=== PATIENT | male | born 1960 | race Caucasian/White ===

== ENCOUNTER 2017-05-26 13:37 | Inpatient (IN) | payer MEDICARE, MEDICAID ==
--- NOTE | 2017-05-26 14:10 | ED Physician Chart ---
ED Chief Complaint/HPI - Patient Information Date Seen:: 05/26/17 Time Seen:: 13:50 Chief Complaint:: swelling both legs History of Present Illness:: Patient's had swelling of both legs for 3 month. No chills, fever, chest pain or shortness of breath. Right lower leg is 5 on a scale of 1-10 painful. Vitals:: Vital Signs - 8 hr 05/26/17 13:53 Temp 98.0 F HR 79 RR 16 BP 133/73 O2 Sat % 98 Historian:: Patient Review:: Nurse's Note Reviewed ED Review of Systems - Review of Systems General/Constitutional: No fever, No chills Skin: Skin lesions Head: No headache Eyes: No loss of vision ENT: No earache, No nasal drainage, No sore throat Neck: No neck pain, No swelling Cardio Vascular: No chest pain, No palpitations Pulmonary: No SOB, No cough GI: No pain, No melena G/U: No dysuria, No frequency, No hematuria Musculoskeletal: No bone or joint pain, Muscle pain Psychiatric: No prior psych history, No depression Hematopoietic: No bruising Allergic/Immuno: No urticaria Neurological: No syncope, No focal symptoms ED Past Medical History - Past Medical History Past Medical History: DM Family History: Diabetes [place] Social History: Smoker, No Alcohol, Other (smokes 10 cigarettes a day) Surgical History: None Psychiatricy History: None Medication: Reviewed Family Medical History - Family Member Mother History Unknown: Yes Ethnicity: Non- Living Status: Still Living Hx Family Cancer: No Hx Family Coronary Artery Disease: Yes Hx Family Congestive Heart Failure: No Hx Family Hypertension: No Hx Family Stroke: No Hx Family Diabetes: Yes Hx Family Seizures: No Hx Family Dementia: No Hx Family AIDS: No Hx Family HIV: No Hx Family COPD: No Hx Family Hepatitis: No Hx Family Psychiatric Problems: Yes Hx Family Tuberculosis: No ED Physical Exam - Physical Examination General/Constitutional: Well-developed, well-nourished, Alert, No distress Head: Atraumatic Eyes: Lids, conjuctiva normal, PERRL Other Skin comments:: 4 out of 4 pitting edema both lower legs; multiple circular areas of slightly raised erythema up to about 1 cm in diameter anterior lower legs right more than left. ENMT: External ears, nose nl Neck: No nuchal rigidity Respiratory: Nl effort/Exclusion, Clear to Auscultation Cardio Vascular: RRR, No murmur, gallop, rubs GI: No tenderness/rebounding/guarding : No CVA tenderness Other Extremities comments:: See above under skin Neuro/Psych: No focal deficits Misc: Normal back ED Labs/Radiology/EKG Results - Lab Results Results: Laboratory Results - last 24 hr 05/26/17 05/26/17 14:12 14:12 WBC 7.6 RBC 4.36 Hgb 13.3 Hct 38.5 L D MCV 88.3 MCH 30.4 H MCHC Differential 34.4 RDW 13.6 Plt Count 187 MPV 7.4 Neutrophils % 60.1 Lymphocytes % 29.7 Monocytes % 8.2 Eosinophils % 1.6 Basophils % 0.4 Sodium 138 Potassium 3.8 Chloride 105 Carbon Dioxide 30.2 Anion Gap 6.6 L BUN 25 Creatinine 1.0 Est GFR ( Amer) > 60.0 Est GFR (Non-Af Amer) > 60.0 BUN/Creatinine Ratio 25.0 Glucose 185 H Calcium 8.9 Total Bilirubin 0.6 AST 14 ALT 25 Alkaline Phosphatase 59 Total Protein 6.1 Albumin 3.6 L Globulin 2.5 Albumin/Globulin Ratio 1.4 - Radiology Results Results: CXR: normal; venous Doppler negative for deep vein thrombosis - EKG Interpretations Rate & Rhythm: normal sinus rhythm with a rate 81 [place]: normal axis Comments:: Normal EKG ED Septic Shock - . Is Septic Shock (SBP<90, OR Lactate>4 mmol\L) present?: No - <6hrs of presentation: Vital Signs: Vital Signs - 8 hr 05/26/17 13:53 Temp 98.0 F HR 79 RR 16 BP 133/73 O2 Sat % 98 ED Reassessment (Disposition) - Reassessment Reassessment Condition:: Unchanged - Diagnosis Diagnosis:: Peripheral edema; folliculitis - Patient Disposition Admitted to:: Med/Surg Spoke to:: Severino Castro Admitting Medical Physician:: Severino Castro Condition at Disposition:: Stable, Unchanged
[2017-05-26 14:17] LABS: % BASOPHILS 0.4 % (0.0-2.0); % EOSINOPHILS 1.6 % (0.0-5.0); % LYMPHOCYTES 29.7 % (20.0-50.0); % MONOCYTES 8.2 % (2.0-10.0); % NEUTROPHILS 60.1 % (40.0-80.0); HEMOGLOBIN 13.3 gm/dL (12-16); MEAN CELL VOLUME 88.3 fl (80-99); MEAN CORPUSCULAR HEMOGLOBIN 30.4 pg (26.0-30.0); MEAN CORPUSCULAR HGB CONC 34.4 pg (28.0-36.0); MEAN PLATELET VOLUME 7.4 fl; NEUTROPHILE ABSOLUTE 4.6 Th/cmm (1.8-8.0); PLATELET COUNT 187 Th/cmm (150-400); RED BLOOD COUNT 4.36 Mil/cmm (4.30-5.70); RED CELL DISTRIBUTION WIDTH 13.6 % (11.5-20.0); WHITE BLOOD COUNT 7.6 Th/cmm (4.8-10.8)
[2017-05-26 14:19] LABS: HEMATOCRIT 38.5 % (41.0-60)
[2017-05-26 14:32] LABS: ALB/GLOB RATIO 1.4 (1.0-1.8); ALKALINE PHOSPHATASE 59 U/L (34-104); ANION GAP 6.6 (7.0-16.0); BILIRUBIN,TOTAL 0.6 mg/dL (0.3-1.0); BUN - UREA NITROGEN 25 mg/dL (7-25); CALCIUM SERUM 8.9 mg/dL (8.6-10.3); CARBON DIOXIDE 30.2 mEq/L (21.0-31.0); CHLORIDE 105 mEq/L (98-107); GLUCOSE 185 mg/dL (70-105); POTASSIUM SERUM 3.8 mEq/L (3.5-5.1); SGOT 14 U/L (13-39); SGPT/ALT 25 U/L (7-52); SODIUM SERUM 138 mEq/L (136-145)
[2017-05-26 19:36] VITALS: BP 144/62
[2017-05-26] MEDS: Albuterol Nebulizer 2.5mg/3mL HHN SCH (20:08)
[2017-05-26] MEDS: INSULIN ASPART, RECOMBINANT 100 UNITS/ML SUBQ SCH (20:42)
[2017-05-26] MEDS: Insulin Detemir 100 units/mL 10mL Vial SUBQ SCH (20:43)
[2017-05-26] MEDS: cefTRIAXone 1 GM in Sodium Chloride 0.9% 50 ML IV SCH (20:59)
[2017-05-26] MEDS ORDERED: Non-Formulary Item 1 EA (Atorvastatin Calcium [Lipitor] 20 MG) PO SCH (21:00)
[2017-05-26] MEDS ORDERED: INSULIN GLARGINE RECOMBINAN SUBQ SCH (21:00)
[2017-05-27] MEDS: INSULIN ASPART, RECOMBINANT 100 UNITS/ML SUBQ SCH ×4 (06:32→21:03)
[2017-05-27] MEDS: Levothyroxine 0.05 Mg Tab PO SCH (06:35)
[2017-05-27] MEDS: Albuterol Nebulizer 2.5mg/3mL HHN SCH ×4 (07:15→19:27)
--- NOTE | 2017-05-27 07:43 | Diagnostic Imaging Report ---
Bilateral lower extremity Doppler venous ultrasound exam HISTORY: Pain/swelling Sonographic sector images were obtained through the deep venous systems of both legs. Associated Doppler data was obtained. The exam demonstrates patency of the common femoral, superficial femoral, popliteal, and posterior tibial veins bilaterally. Specifically, no thrombus is seen. There are normal compressibility and augmentation responses. IMPRESSION: Negative exam for deep vein thrombophlebitis.
--- NOTE | 2017-05-27 07:45 | Diagnostic Imaging Report ---
Portable chest x-ray HISTORY: Shortness of breath Allowing for portable technique in a poor inspiration, the heart size is normal. No acute focal pulmonary processes. No hilar or mediastinal abnormalities. IMPRESSION: 1. Allowing for a poor inspiration, no acute abnormalities.
[2017-05-27] MEDS: Multivitamin w/ Minerals Tab PO SCH (09:06)
[2017-05-27] MEDS: Fish Oil 1,000 MG SGL PO SCH ×2 (09:06→17:29)
[2017-05-27] MEDS: cefTRIAXone 1 GM in Sodium Chloride 0.9% 50 ML IV SCH ×2 (09:06→20:35)
[2017-05-27] MEDS: Vitamin D3 2,000 IU SGL PO SCH ×2 (09:06→17:29)
[2017-05-27] MEDS ORDERED: Influenza Vaccine 0.5 mL Syr IM ONE (10:00)
[2017-05-27] MEDS ORDERED: VTE Chemical Prophylaxis Screen/Admission MC PRN (10:58)
--- NOTE | 2017-05-27 13:23 | Internal Medicine Prog Note ---
Internal Medicine Subjective - Subjective Service Date: 05/27/17 ([id number] HN ) Internal Medicine Objective - Results Result Diagrams: 05/26/17 14:12 05/26/17 14:12 Recent Labs: Laboratory Last Values WBC 7.6 Th/cmm (4.8-10.8) 05/26/17 14:12 RBC 4.36 Mil/cmm (4.30-5.70) 05/26/17 14:12 Hgb 13.3 gm/dL (12-16) 05/26/17 14:12 Hct 38.5 % (41.0-60) L D 05/26/17 14:12 MCV 88.3 fl (80-99) 05/26/17 14:12 MCH 30.4 pg (26.0-30.0) H 05/26/17 14:12 MCHC Differential 34.4 pg (28.0-36.0) 05/26/17 14:12 RDW 13.6 % (11.5-20.0) 05/26/17 14:12 Plt Count 187 Th/cmm (150-400) 05/26/17 14:12 MPV 7.4 fl 05/26/17 14:12 Neutrophils % 60.1 % (40.0-80.0) 05/26/17 14:12 Lymphocytes % 29.7 % (20.0-50.0) 05/26/17 14:12 Monocytes % 8.2 % (2.0-10.0) 05/26/17 14:12 Eosinophils % 1.6 % (0.0-5.0) 05/26/17 14: Basophils % 0.4 % (0.0-2.0) 05/26/17 14:12 Sodium 138 mEq/L (136-145) 05/26/17 14:12 Potassium 3.8 mEq/L (3.5-5.1) 05/26/17 14:12 Chloride 105 mEq/L (98-107) 05/26/17 14:12 Carbon Dioxide 30.2 mEq/L (21.0-31.0) 05/26/17 14:12 Anion Gap 6.6 (7.0-16.0) L 05/26/17 14:12 BUN 25 mg/dL (7-25) 05/26/17 14:12 Creatinine 1.0 mg/dL (0.7-1.3) 05/26/17 14:12 Est GFR ( Amer) > 60.0 ml/min (>90) 05/26/17 14:12 Est GFR (Non-Af Amer) > 60.0 ml/min 05/26/17 14:12 BUN/Creatinine Ratio 25.0 05/26/17 14:12 Glucose 185 mg/dL (70-105) H 05/26/17 14:12 POC Glucose 142 MG/DL (70 - 105) H 05/27/17 11:37 Hemoglobin A1c % 7.6 % (4.0-6.0) H 05/26/17 14:12 Calcium 8.9 mg/dL (8.6-10.3) 05/26/17 14:12 Total Bilirubin 0.6 mg/dL (0.3-1.0) 05/26/17 14:12 AST 14 U/L (13-39) 05/26/17 14:12 ALT 25 U/L (7-52) 05/26/17 14:12 Alkaline Phosphatase 59 U/L (34-104) 05/26/17 14:12 Troponin I < 0.01 ng/mL (0.01-0.05) L 05/26/17 14:12 B-Natriuretic Peptide 63.1 pg/mL (5.0-100.0) 05/26/17 14:12 Total Protein 6.1 gm/dL (6.0-8.3) 05/26/17 14:12 Albumin 3.6 gm/dL (4.2-5.5) L 05/26/17 14:12 Globulin 2.5 gm/dL 05/26/17 14:12 Albumin/Globulin Ratio 1.4 (1.0-1.8) 05/26/17 14:12 - Physical Exam Vitals and I&O: Vital Signs Temp 98.1 F 05/27/17 12:00 Pulse 65 05/27/17 12:00 Resp 18 05/27/17 12:00 BP 128/64 05/27/17 12:00 Pulse Ox 98 05/27/17 12:00 Intake & Output 05/26/17 05/27/17 05/27/17 18:59 06:59 18:59 Intake Total 410 Output Total 900 Balance -490 Weight (lbs) 190 lb Intake: Intake, IV Amount 50 cefTRIAXone 1 gm In 50 Sodium Chloride 0.9% 50 ml @ 100 mls/hr IV Q12HR [facility] Rx#:[id number] Oral 360 Output: Urine 900 Active Medications: Current Medications Acetaminophen (Tylenol) 650 mg PO Q4H PRN PRN Reason: Pain Or Fever above 101 Stop: 07/25/17 18:51 Albuterol Sulfate (Albuterol 2.5mg/3ml Neb Ud) 2.5 mg HHN QIDRT [facility] Stop: 07/25/17 18:59 Last Admin: 05/27/17 12:00 Dose: 2.5 mg Docusate Sodium (Colace) 100 mg PO DAILY [facility] Stop: 07/26/17 08:59 Last Admin: 05/27/17 09:06 Dose: 100 mg Fish Oil ([place] 3) 1,000 mg PO BID [facility] Stop: 07/26/17 08:59 Last Admin: 05/27/17 09:06 Dose: 1,000 mg Heparin Sodium (Porcine) (Heparin) 5,000 units SUBQ Q12HR [facility] Stop: 07/26/17 20:59 Ceftriaxone Sodium 1 gm/ (Sodium Chloride) 50 mls @ 100 mls/hr IV Q12HR [facility] Stop: 07/25/17 20:59 Last Admin: 05/27/17 09:06 Dose: 100 mls/hr Insulin Aspart (Novolog) 0 units SUBQ ACHS [facility] PRN Reason: Protocol Stop: 07/25/17 20:59 Last Admin: 05/27/17 12:19 Dose: Not Given Insulin Detemir (Levemir Insulin) 10 units SUBQ HS [facility] Stop: 07/25/17 20:59 Last Admin: 05/26/17 20:43 Dose: 10 units Levothyroxine Sodium (Synthroid) 0.05 mg PO QDAC [facility] Stop: 07/26/17 07:29 Last Admin: 05/27/17 06:35 Dose: 0.05 mg Miscellaneous (Vte Chemical Prophylaxis Screen/ Admission) 1 ea [facility] PRN PRN PRN Reason: PROTOCOL Stop: 07/26/17 10:57 Ondansetron HCl (Zofran) 4 mg IV Q8H PRN PRN Reason: Nausea / Vomiting Stop: 07/25/17 18:51 Simvastatin (Zocor) 20 mg PO HS [facility] Stop: 07/25/17 20:59 Last Admin: 05/26/17 20:44 Dose: 20 mg Vitamin D (Vitamin D3) 2,000 iu PO BID [facility] Stop: 07/26/17 08:59 Last Admin: 05/27/17 09:06 Dose: 2,000 iu Zolpidem Tartrate (Ambien) 10 mg PO HS PRN PRN Reason: Insomnia Stop: 07/25/17 18:51 - Procedures Procedures: Procedures Procedure Code Date GROUP PSYCHOTHERAPY 99793 07/02/15 GROUP PSYCHOTHERAPY [id number] 07/02/15 OTHER GROUP THERAPY 94.44 01/29/15 RECREATIONAL THERAPY 93.81 06/09/14 Internal Medicine Assmt/Plan - Assessment Assessment: acute cellulitis dm-2 CHF exacerbation Nutritional Asmnt/Malnutr-PDOC - Dietary Evaluation Malnutrition Findings (Please click <Entered> for more info): Nutritional Asmnt/Malnutrition Start: 05/27/17 12: 01 Text: Status: Complete Freq: Document 05/27/17 12:01 MADDIE (Rec: 05/27/17 12:05 MADDIE LOWERY -[id number]) Nutritional Asmnt/Malnutrition Patient General Information Nutritional Screening Consult Diagnosis Cellulits, CHF Pertinent Medical Hx/Surgical Hx DM, smoker per MD notes Subjective Information Pt seen for Nutrition Consult (elevated glucose level). Pt reported that he hasn't had much of an appetite as he doesn't care for hospital foods. RN confirmed that pt hasn't been eating much. Pt appeared over-nourished for ht , c/w anthropometrics and verified by pt. Pt has RLE and LLE 4+ pitting edema. Pt reported use of calcium and vitamins for immunity. Pt is millicent Current Diet Order/ Nutrition Support Cardiac Patient / S.O Can Pertinent Medications colace, omega 3, levemir, insulin, synthroid, zocor, VIT D3 Pertinent Labs 05/27/17: POC BG 110 H : BG 185 H, HgA1c 7.6 H , ALB 3.6 L Nutritional Hx/Data Height 5 ft 11 in Height (Calculated Centimeters) 180.3 Current Weight (lbs) 190 lb Weight (Calculated Kilograms) 86.2 Weight (Calculated Grams) 93420.6 Usual body Weight (lbs) 210 % Usual Body Weight 90 [place] Body Weight 172 lb, 78 kg % [place] Body Weight 110 Recent Weight Change Yes Weight Status Overweight GI Symptoms GI Symptoms None Food Allergies No Usual diet at home Avoids bread/prefers meats/ fish/chicken/beef Skin Integrity/Comment: Bilateral legs w/ rash/redness /cellulitis per RN report Current %PO Poor (25-49%) Estimated Nutritional Goals BEE in Kcals: Using Current wt Calories/Kcals/Kg 25-30 kcal/kg CBW (maintenance ) Kcals Calculated 3526-7788 kcal/day Protein: Using Current wt Protein g/k.8-1 gm/kg CBW (maintenance) Protein Calculated 69-86 gm/day Fluid: ml 2.2-2.6 L/day (1 ml/kcal/day for maintenance) Nutritional Problem 2. Problem Problem Altered nutriton-related labs Etiology related to endocrine dysfunction Signs/Symptoms: as evidenced by elevated BG and POC BG lab values. 1. Problem Problem Inadequate nutritional intakes Etiology related to lack of appetite Signs/Symptoms: as evidenced by pt and RN report. Malnutrition Alert Is there a minimum of two criteria No selected? Query Text:Check all the applicable criteria. A minimum of two criteria are recommended for diagnosis of either severe or non-severe malnutrition. Intervention/Recommendation Recommendations by RD Dietary Education by RD1 Increase Calorie Intake Comments * Recommend CCHO high carb-75 gm diet * Recommend encourage increase PO intakes Expected Outcomes/Goals Expected Outcomes/Goals - Monitor appetite and PO intakes w/ gaol fo pt meeting at least 75% of estimated nutritional needs, labs trending WNL, normal GI function, and skin integrity/ wt maintenance within 3-5 days
[2017-05-27] MEDS ORDERED: Probiotic Screen MC PRN (16:46)
--- NOTE | 2017-05-27 18:21 | Cardiology ---
05/27/2017 PATIENT OF: Dr. Castro. M-MODE ECHOCARDIOGRAM: Mitral valve, anterior leaflet of the mitral valve shows normal excursion, EF velocity. Posterior leaflet of mitral valve shows normal excursion. Left ventricular posterior wall shows increased thickness, normal excursion. Interventricular septum shows increased thickness, normal excursion, hypertrophy of the left ventricle, ejection fraction 60%. Left atrium enlarged, 4.2 cm. Aortic root shows normal dimension, normal excursion of aortic leaflets. CONCLUSION: Hypertrophy of the left ventricle, left atrial enlargement, ejection fraction 60%. 2D ECHO: Long axis view showed normal sized left ventricle with hypertrophy of the left ventricle. Left atrium enlarged. Aortic root shows normal dimension, normal excursion of aortic leaflets. Short axis view of mitral valve normal. Short axis view of aortic valve normal. Apical four chamber view showed normal sized left ventricle, left atrium enlarged. Right ventricular cavity, right atrium normal, no pericardial effusion. CONCLUSION: Hypertrophy of the left ventricle. Left atrial enlargement, ejection fraction 60%. Doppler study shows prominent A wave consistent with poor compliance of left ventricle. Trace tricuspid regurgitation. JOB# [id number]
[2017-05-27] MEDS: Insulin Detemir 100 units/mL 10mL Vial SUBQ SCH (21:02)
--- NOTE | 2017-05-27 22:05 | History & Physical ---
ADMIT DATE: 05/27/2017 CHIEF COMPLAINT: Bilateral lower leg swelling. HISTORY OF PRESENT ILLNESS: This is a 56-year-old male, who is a resident of [facility], who is brought here to [facility] for a 3-month history of bilateral lower leg swelling. The patient denies any shortness of breath, however, the patient states that he has been having leg pain as well. PAST MEDICAL HISTORY: Type 2 diabetes and psychosis. SOCIAL HISTORY: The patient smokes half a pack per day, a senior care resident. MEDICATIONS: Please see medication reconciliation sheet. REVIEW OF SYSTEMS: GENERAL: Denies any fevers or chills. CARDIOVASCULAR: Denies chest pain. RESPIRATORY: Denies shortness of breath. GASTROINTESTINAL: Denies nausea, vomiting, abdominal pain. GENITOURINARY: Denies increased frequency or dysuria. NEUROLOGIC: No headache, seizures or syncope. All other systems are reviewed by me and are negative. PHYSICAL EXAMINATION: GENERAL: The patient is well developed, well nourished, no acute distress. VITAL SIGNS: Temperature 98.1, heart rate 65, blood pressure ____/64, respirations 18, O2 98%. HEENT: Head; normocephalic, atraumatic. NECK: Supple. No mass. LUNGS: Clear bilaterally. HEART: Regular rhythm. ABDOMEN: Soft, nontender. SKIN: As noted. EXTREMITIES: Bilateral lower extremities +3 edema. LABORATORY DATA: WBC 7.6, H and H 13.3 and 38.5, platelet of 187. Sodium 138, potassium 3.8, chloride 105, BUN 25, creatinine 1.0. Hemoglobin A1c of 7.0. Troponin of 0.01. DIAGNOSTICS: The patient had a lower extremity ultrasound done and the impression is negative for any DVT. The patient also had a chest x-ray done and the impression is ____ acute abnormalities. ASSESSMENT: 1. Cellulitis. 2. Congestive heart failure exacerbation. 3. Type 2 diabetes. PLAN: The patient to be admitted to the telemetry unit. We will have a cardiology on the case. The patient will be on a 75 g diet. We will monitor the patient's glucose level ____. We will do ____ a renal ultrasound. We will continue to follow this patient. JOB# [id number]
[2017-05-28 05:46] LABS: % BASOPHILS 0.4 % (0.0-2.0); % EOSINOPHILS 1.2 % (0.0-5.0); % LYMPHOCYTES 26.9 % (20.0-50.0); % MONOCYTES 9.8 % (2.0-10.0); % NEUTROPHILS 61.7 % (40.0-80.0); HEMOGLOBIN 12.1 gm/dL (12-16); MEAN CELL VOLUME 87.4 fl (80-99); MEAN CORPUSCULAR HEMOGLOBIN 30.6 pg (26.0-30.0); NEUTROPHILE ABSOLUTE 5.9 Th/cmm (1.8-8.0); PLATELET COUNT 165 Th/cmm (150-400); RED BLOOD COUNT 3.94 Mil/cmm (4.30-5.70); RED CELL DISTRIBUTION WIDTH 13.3 % (11.5-20.0)
[2017-05-28 05:49] LABS: WHITE BLOOD COUNT 9.5 Th/cmm (4.8-10.8)
[2017-05-28 05:50] LABS: HEMATOCRIT 34.5 % (41.0-60)
[2017-05-28 06:11] LABS: ANION GAP 7.8 (7.0-16.0); BUN - UREA NITROGEN 15 mg/dL (7-25); BUN/CREATININE RATIO 18.8; CALCIUM SERUM 8.4 mg/dL (8.6-10.3); CARBON DIOXIDE 28.8 mEq/L (21.0-31.0); CHLORIDE 106 mEq/L (98-107); CREATININE - SERUM 0.8 mg/dL (0.7-1.3); GLUCOSE 127 mg/dL (70-105); POTASSIUM SERUM 3.6 mEq/L (3.5-5.1); SODIUM SERUM 139 mEq/L (136-145)
[2017-05-28] MEDS: INSULIN ASPART, RECOMBINANT 100 UNITS/ML SUBQ SCH ×4 (06:36→20:57)
[2017-05-28] MEDS: Levothyroxine 0.05 Mg Tab PO SCH (06:38)
[2017-05-28] MEDS: Albuterol Nebulizer 2.5mg/3mL HHN SCH ×4 (08:02→18:52)
[2017-05-28] MEDS: cefTRIAXone 1 GM in Sodium Chloride 0.9% 50 ML IV SCH ×2 (08:59→20:34)
[2017-05-28] MEDS: Fish Oil 1,000 MG SGL PO SCH ×2 (09:04→17:36)
[2017-05-28] MEDS: Vitamin D3 2,000 IU SGL PO SCH ×2 (09:04→17:35)
[2017-05-28] MEDS: Lactobacillus Rhamnosus 10 Billion CFU Capsule PO SCH (09:04)
[2017-05-28] MEDS: Multivitamin w/ Minerals Tab PO SCH (09:04)
--- NOTE | 2017-05-28 09:37 | Diagnostic Imaging Report ---
Ultrasound abdomen HISTORY: Liver failure COMPARISON: CT abdomen and pelvis on 06/30/2015 Technique: Sonography of the abdomen was performed in multiple planes. FINDINGS: Evaluation of pancreas is limited due to bowel gas. The visualized portions of the abdominal aorta within normal limits in size. The liver demonstrates normal echogenicity and measures 18.9 cm. No evidence of focal lesions. There is suggestion of a small amount of gallbladder sludge. No discrete gallstones identified. No erosive gallbladder wall thickening. The CBD measures 4 mm. The right kidney measures 12.3 x 5.4 cm. No evidence of focal lesions or hydronephrosis.. The left kidney measures 12.5 x 6.8 cm. No evidence of focal lesions or hydronephrosis. The spleen measures 13.7 cm. IMPRESSION: Mild hepatosplenomegaly. Please correlate with clinical findings. Small amount of gallbladder sludge. No discrete gallstones or evidence of gallbladder wall thickening. Mildly prominent renal sizes. No evidence of hydronephrosis.
--- NOTE | 2017-05-28 09:38 | Diagnostic Imaging Report ---
Ultrasound pelvis History: Pain Comparison: CT abdomen and pelvis on 06/30/2015 Technique: Sonography of the pelvis was performed in multiple planes. The prostate gland measures 4.5 x 3.8 x 3 cm. The prostate gland is mildly heterogeneous echotexture. The prevoid bladder volume is 225 mL's. The posterior bladder wall is 31 mL's. IMPRESSION: Mildly prominent heterogeneous prostate gland. Please correlate with clinical findings. No evidence of elevated postvoid residual bladder volumes.
[2017-05-28 10:12] LABS: HEP B CORE IGM Negative (Negative); HEP C ANTIBODY <0.1 s/co ratio (0.0-0.9)
--- NOTE | 2017-05-28 12:15 | Internal Medicine Prog Note ---
Internal Medicine Subjective - Subjective Service Date: 05/28/17 Patient seen and examined:: with staff Patient is:: awake, verbal Per staff patient has:: tolerating meds Internal Medicine Objective - Results Result Diagrams: 05/28/17 05:22 05/28/17 05:22 Recent Labs: Laboratory Last Values WBC 9.5 Th/cmm (4.8-10.8) D 05/28/17 05:22 RBC 3.94 Mil/cmm (4.30-5.70) L 05/28/17 05:22 Hgb 12.1 gm/dL (12-16) 05/28/17 05:22 Hct 34.5 % (41.0-60) L D 05/28/17 05:22 MCV 87.4 fl (80-99) 05/28/17 05:22 MCH 30.6 pg (26.0-30.0) H 05/28/17 05:22 MCHC Differential 35.0 pg (28.0-36.0) 05/28/17 05:22 RDW 13.3 % (11.5-20.0) 05/28/17 05:22 Plt Count 165 Th/cmm (150-400) 05/28/17 05:22 MPV 8.0 fl 05/28/17 05:22 Neutrophils % 61.7 % (40.0-80.0) 05/28/17 05:22 Lymphocytes % 26.9 % (20.0-50.0) 05/28/17 05:22 Monocytes % 9.8 % (2.0-10.0) 05/28/17 05:22 Eosinophils % 1.2 % (0.0-5.0) 05/28/17 05:22 Basophils % 0.4 % (0.0-2.0) 05/28/17 05:22 Sodium 139 mEq/L (136-145) 05/28/17 05:22 Potassium 3.6 mEq/L (3.5-5.1) 05/28/17 05:22 Chloride 106 mEq/L (98-107) 05/28/17 05:22 Carbon Dioxide 28.8 mEq/L (21.0-31.0) 05/28/17 05:22 Anion Gap 7.8 (7.0-16.0) 05/28/17 05:22 BUN 15 mg/dL (7-25) 05/28/17 05:22 Creatinine 0.8 mg/dL (0.7-1.3) 05/28/17 05:22 Est GFR ( Amer) > 60.0 ml/min (>90) 05/28/17 05:22 Est GFR (Non-Af Amer) > 60.0 ml/min 05/28/17 05:22 BUN/Creatinine Ratio 18.8 05/28/17 05:22 Glucose 127 mg/dL (70-105) H 05/28/17 05:22 POC Glucose 130 MG/DL (70 - 105) H 05/28/17 06:34 Hemoglobin A1c % 7.6 % (4.0-6.0) H 05/26/17 14:12 Calcium 8.4 mg/dL (8.6-10.3) L 05/28/17 05:22 Total Bilirubin 0.6 mg/dL (0.3-1.0) 05/26/17 14:12 AST 14 U/L (13-39) 05/26/17 14:12 ALT 25 U/L (7-52) 05/26/17 14:12 Alkaline Phosphatase 59 U/L (34-104) 05/26/17 14:12 Troponin I < 0.01 ng/mL (0.01-0.05) L 05/26/17 14:12 B-Natriuretic Peptide 63.1 pg/mL (5.0-100.0) 05/26/17 14:12 Total Protein 6.1 gm/dL (6.0-8.3) 05/26/17 14:12 Albumin 3.6 gm/dL (4.2-5.5) L 05/26/17 14:12 Globulin 2.5 gm/dL 05/26/17 14:12 Albumin/Globulin Ratio 1.4 (1.0-1.8) 05/26/17 14:12 Hepatitis A IgM Ab Negative (Negative) 05/27/17 04:54 Hep Bs Antigen Negative (Negative) 05/27/17 04:54 Hep B Core IgM Ab Negative (Negative) 05/27/17 04:54 Hepatitis C Antibody <0.1 s/co ratio (0.0-0.9) 05/27/17 04:54 - Physical Exam Vitals and I&O: Vital Signs Temp 98.4 F 05/28/17 04:00 Pulse 79 05/28/17 11:25 Resp 16 05/28/17 11:25 BP 129/57 05/28/17 04:00 Pulse Ox 96 05/28/17 11:25 Intake & Output 05/27/17 05/28/17 05/28/17 18:59 06:59 18:59 Intake Total 50 150 Output Total 350 Balance 50 -200 Weight (lbs) 200 lb 8 oz Intake: Intake, IV Amount 50 50 cefTRIAXone 1 gm In 50 50 Sodium Chloride 0.9% 50 ml @ 100 mls/hr IV Q12HR [facility] Rx#:[id number] Oral 100 Output: Urine 350 Active Medications: Current Medications Acetaminophen (Tylenol) 650 mg PO Q4H PRN PRN Reason: Pain Or Fever above 101 Stop: 07/25/17 18:51 Albuterol Sulfate (Albuterol 2.5mg/3ml Neb Ud) 2.5 mg HHN QIDRT [facility] Stop: 07/25/17 18:59 Last Admin: 05/28/17 11:23 Dose: 2.5 mg Docusate Sodium (Colace) 100 mg PO DAILY [facility] Stop: 07/26/17 08:59 Last Admin: 05/28/17 09:04 Dose: 100 mg Fish Oil ([place] 3) 1,000 mg PO BID [facility] Stop: 07/26/17 08:59 Last Admin: 05/28/17 09:04 Dose: 1,000 mg Heparin Sodium (Porcine) (Heparin) 5,000 units SUBQ Q12HR [facility] Stop: 07/26/17 20:59 Last Admin: 05/28/17 09:04 Dose: 5,000 units Ceftriaxone Sodium 1 gm/ (Sodium Chloride) 50 mls @ 100 mls/hr IV Q12HR [facility] Stop: 07/25/17 20:59 Last Admin: 05/28/17 08:59 Dose: 100 mls/hr Insulin Aspart (Novolog) 0 units SUBQ ACHS [facility] PRN Reason: Protocol Stop: 07/25/17 20:59 Last Admin: 05/28/17 06:36 Dose: Not Given Insulin Detemir (Levemir Insulin) 10 units SUBQ HS [facility] Stop: 07/25/17 20:59 Last Admin: 05/27/17 21:02 Dose: 10 units Lactobacillus Rhamnosus (Culturelle) 1 each PO DAILY [facility] Stop: 07/27/17 08:59 Last Admin: 05/28/17 09:04 Dose: 1 each Levothyroxine Sodium (Synthroid) 0.05 mg PO QDAC [facility] Stop: 07/26/17 07:29 Last Admin: 05/28/17 06:38 Dose: 0.05 mg Miscellaneous (Vte Chemical Prophylaxis Screen/ Admission) 1 ea [facility] PRN PRN PRN Reason: PROTOCOL Stop: 07/26/17 10:57 Miscellaneous (Probiotic Screen) 1 ea [facility] PRN PRN PRN Reason: PROTOCOL Stop: 07/26/17 16:45 Ondansetron HCl (Zofran) 4 mg IV Q8H PRN PRN Reason: Nausea / Vomiting Stop: 07/25/17 18:51 Simvastatin (Zocor) 20 mg PO HS [facility] Stop: 07/25/17 20:59 Last Admin: 05/27/17 20:44 Dose: 20 mg Vitamin D (Vitamin D3) 2,000 iu PO BID [facility] Stop: 07/26/17 08:59 Last Admin: 05/28/17 09:04 Dose: 2,000 iu Zolpidem Tartrate (Ambien) 10 mg PO HS PRN PRN Reason: Insomnia Stop: 07/25/17 18:51 General: alert HEENT: NC/AT, PERRLA Neck: Supple Lungs: CTAB Cardiovascular: RRR, Normal S1, Normal S2, without murmur Abdomen: soft, non-tender, non-distended, positive bowel sound Extremities: edema Neurological: alert - Procedures Procedures: Procedures Procedure Code Date GROUP PSYCHOTHERAPY 33078 07/02/15 GROUP PSYCHOTHERAPY GZHZZZZ 07/02/15 OTHER GROUP THERAPY 94.44 01/29/15 RECREATIONAL THERAPY 93.81 06/09/14 Internal Medicine Assmt/Plan - Assessment Assessment: acute cellulitis dm-2 CHF exacerbation - Plan Plan: continue ivabx am labs elevate bilateral lower ext to reduce swelling continue current plan of care Nutritional Asmnt/Malnutr-PDOC - Dietary Evaluation Malnutrition Findings (Please click <Entered> for more info): Nutritional Asmnt/Malnutrition Start: 05/27/17 12: 01 Text: Status: Complete Freq: Document 05/27/17 12:01 MADDIE (Rec: 05/27/17 12:05 [id number] Nutritional Asmnt/Malnutrition Patient General Information Nutritional Screening Consult Diagnosis Cellulits, CHF Pertinent Medical Hx/Surgical Hx DM, smoker per MD notes Subjective Information Pt seen for Nutrition Consult (elevated glucose level). Pt reported that he hasn't had much of an appetite as he doesn't care for hospital foods. RN confirmed that pt hasn't been eating much. Pt appeared over-nourished for ht , c/w anthropometrics and verified by pt. Pt has RLE and LLE 4+ pitting edema. Pt reported use of calcium and vitamins for immunity. Pt is lilkely not yet meeting optimal nutritional needs. RD to provide diabetic nutrition education. Current Diet Order/ Nutrition Support Cardiac Patient / S.O Can Pertinent Medications colace, omega 3, levemir, insulin, synthroid, zocor, VIT D3 Pertinent Labs 05/27/17: POC BG 110 H : BG 185 H, HgA1c 7.6 H , ALB 3.6 L Nutritional Hx/Data Height 5 ft 11 in Height (Calculated Centimeters) 180.3 Current Weight (lbs) 190 lb Weight (Calculated Kilograms) 86.2 Weight (Calculated Grams) 14529.6 Usual body Weight (lbs) 210 % Usual Body Weight 90 [place] Body Weight 172 lb, 78 kg % [place] Body Weight 110 Recent Weight Change Yes Weight Status Overweight GI Symptoms GI Symptoms None Food Allergies No Usual diet at home Avoids bread/prefers meats/ fish/chicken/beef Skin Integrity/Comment: Bilateral legs w/ rash/redness /cellulitis per RN report Current %PO Poor (25-49%) Estimated Nutritional Goals BEE in Kcals: Using Current wt Calories/Kcals/Kg 25-30 kcal/kg CBW (maintenance ) Kcals Calculated 5477-4327 kcal/day Protein: Using Current wt Protein g/k.8-1 gm/kg CBW (maintenance) Protein Calculated 69-86 gm/day Fluid: ml 2.2-2.6 L/day (1 ml/kcal/day for maintenance) Nutritional Problem 2. Problem Problem Altered nutriton-related labs Etiology related to endocrine dysfunction Signs/Symptoms: as evidenced by elevated BG and POC BG lab values. 1. Problem Problem Inadequate nutritional intakes Etiology related to lack of appetite Signs/Symptoms: as evidenced by pt and RN report. Malnutrition Alert Is there a minimum of two criteria No selected? Query Text:Check all the applicable criteria. A minimum of two criteria are recommended for diagnosis of either severe or non-severe malnutrition. Intervention/Recommendation Recommendations by RD Dietary Education by RD1 Increase Calorie Intake Comments * Recommend CCHO high carb-75 gm diet * Recommend encourage increase PO intakes Expected Outcomes/Goals Expected Outcomes/Goals - Monitor appetite and PO intakes w/ gaol fo pt meeting at least 75% of estimated nutritional needs, labs trending WNL, normal GI function, and skin integrity/ wt maintenance within 3-5 days
--- NOTE | 2017-05-28 12:30 | Consultation ---
DATE OF CONSULTATION: 05/27/[address] Castro. HISTORY OF PRESENT ILLNESS: This 56-year-old male patient who is at [facility] where the patient has been complaining of swelling in both lower extremities, which gradually deteriorated. PAST MEDICAL HISTORY: Hypertension, psychosis, hypothyroid, major depression, and anxiety. FAMILY HISTORY: Unremarkable. SOCIAL HISTORY: No history of smoking or alcohol abuse. ALLERGIES: No known allergies. PHYSICAL EXAMINATION: VITAL SIGNS: Blood pressure 130/80, pulse 70, and respirations 20. HEAD: Normocephalic. No lumps or bumps. EYES: Pupils equal, reactive to light. Fundi show AV nicking. Sclerae white. Conjunctivae pink. NECK: Carotid 2+. Normal upstroke. JVD flat. Thyroid not palpable. Lymph nodes not palpable. CHEST: Shows increased AP diameter. No kyphosis, scoliosis. LUNGS: Bilateral bronchovesicular breath sounds. HEART: PMI fifth intercostal space with lateral to midclavicular line. S1, S2. No S3, soft S4. Systolic murmur, grade 2/6, lower left sternal border without radiation. ABDOMEN: Soft. Liver and spleen not palpable. No organomegaly. Bowel sounds are active. NEUROLOGIC: Unremarkable. EXTREMITIES: Peripheral pulses 2+. No pedal edema. The patient has 2+ pedal edema with cellulitis. The patient had an echocardiogram, which showed hypertrophy of the left ventricle, left atrial enlargement, ejection fraction 60%, trace tricuspid regurgitation. Venous duplex study of both lower extremities, no DVT. CLINICAL IMPRESSION: Congestive heart failure, right ventricular failure, diastolic dysfunction, acute, diabetes mellitus, type 2, hypothyroidism, major depression, and anxiety. PLAN: The patient to continue present care. Give diuretics and monitor the patient on telemetry bed for any arrhythmias. JOB# [id number]
[2017-05-28] MEDS: Insulin Detemir 100 units/mL 10mL Vial SUBQ SCH (20:56)
[2017-05-29 05:46] LABS: % BASOPHILS 0.1 % (0.0-2.0); % LYMPHOCYTES 31.6 % (20.0-50.0); % MONOCYTES 9.2 % (2.0-10.0); % NEUTROPHILS 57.1 % (40.0-80.0); HEMATOCRIT 35.7 % (41.0-60); MEAN CELL VOLUME 89.1 fl (80-99); MEAN CORPUSCULAR HEMOGLOBIN 29.9 pg (26.0-30.0); MEAN CORPUSCULAR HGB CONC 33.5 pg (28.0-36.0); MEAN PLATELET VOLUME 8.1 fl; NEUTROPHILE ABSOLUTE 4.1 Th/cmm (1.8-8.0); PLATELET COUNT 171 Th/cmm (150-400); RED BLOOD COUNT 4.01 Mil/cmm (4.30-5.70); RED CELL DISTRIBUTION WIDTH 13.2 % (11.5-20.0)
[2017-05-29 06:08] LABS: BUN - UREA NITROGEN 14 mg/dL (7-25); BUN/CREATININE RATIO 17.5; CALCIUM SERUM 8.6 mg/dL (8.6-10.3); CARBON DIOXIDE 27.7 mEq/L (21.0-31.0); CHLORIDE 105 mEq/L (98-107); CREATININE - SERUM 0.8 mg/dL (0.7-1.3); GLUCOSE 123 mg/dL (70-105); POTASSIUM SERUM 3.7 mEq/L (3.5-5.1); SODIUM SERUM 136 mEq/L (136-145)
[2017-05-29] MEDS: Levothyroxine 0.05 Mg Tab PO SCH (06:50)
[2017-05-29] MEDS: Albuterol Nebulizer 2.5mg/3mL HHN SCH ×4 (07:14→18:57)
[2017-05-29] MEDS: INSULIN ASPART, RECOMBINANT 100 UNITS/ML SUBQ SCH ×4 (07:54→20:41)
[2017-05-29] MEDS: Multivitamin w/ Minerals Tab PO SCH (08:18)
[2017-05-29] MEDS: cefTRIAXone 1 GM in Sodium Chloride 0.9% 50 ML IV SCH ×2 (08:18→20:39)
[2017-05-29] MEDS: Vitamin D3 2,000 IU SGL PO SCH ×2 (08:18→16:49)
[2017-05-29] MEDS: Fish Oil 1,000 MG SGL PO SCH ×2 (08:18→16:49)
[2017-05-29] MEDS: Lactobacillus Rhamnosus 10 Billion CFU Capsule PO SCH (08:18)
--- NOTE | 2017-05-29 14:26 | Internal Medicine Prog Note ---
Internal Medicine Subjective - Subjective Service Date: 05/29/17 Patient is:: awake, verbal Per staff patient has:: tolerating meds Internal Medicine Objective - Results Result Diagrams: 05/29/17 05:32 05/29/17 05:32 Recent Labs: Laboratory Last Values WBC 7.0 Th/cmm (4.8-10.8) D 05/29/17 05:32 RBC 4.01 Mil/cmm (4.30-5.70) L 05/29/17 05:32 Hgb 12.0 gm/dL (12-16) 05/29/17 05:32 Hct 35.7 % (41.0-60) L 05/29/17 05:32 MCV 89.1 fl (80-99) 05/29/17 05:32 MCH 29.9 pg (26.0-30.0) 05/29/17 05:32 MCHC Differential 33.5 pg (28.0-36.0) 05/29/17 05:32 RDW 13.2 % (11.5-20.0) 05/29/17 05:32 Plt Count 171 Th/cmm (150-400) 05/29/17 05:32 MPV 8.1 fl 05/29/17 05:32 Neutrophils % 57.1 % (40.0-80.0) 05/29/17 05:32 Lymphocytes % 31.6 % (20.0-50.0) 05/29/17 05:32 Monocytes % 9.2 % (2.0-10.0) 05/29/17 05:32 Eosinophils % 2.0 % (0.0-5.0) 05/29/17 05:32 Basophils % 0.1 % (0.0-2.0) 05/29/17 05:32 Sodium 136 mEq/L (136-145) 05/29/17 05:32 Potassium 3.7 mEq/L (3.5-5.1) 05/29/17 05:32 Chloride 105 mEq/L (98-107) 05/29/17 05:32 Carbon Dioxide 27.7 mEq/L (21.0-31.0) 05/29/17 05:32 Anion Gap 7.0 (7.0-16.0) 05/29/17 05:32 BUN 14 mg/dL (7-25) 05/29/17 05:32 Creatinine 0.8 mg/dL (0.7-1.3) 05/29/17 05:32 Est GFR ( Amer) > 60.0 ml/min (>90) 05/29/17 05:32 Est GFR (Non-Af Amer) > 60.0 ml/min 05/29/17 05:32 BUN/Creatinine Ratio 17.5 05/29/17 05:32 Glucose 123 mg/dL (70-105) H 05/29/17 05:32 POC Glucose 197 MG/DL (70 - 105) H 05/29/17 11:47 Hemoglobin A1c % 7.6 % (4.0-6.0) H 05/26/17 14:12 Calcium 8.6 mg/dL (8.6-10.3) 05/29/17 05:32 Total Bilirubin 0.6 mg/dL (0.3-1.0) 05/26/17 14:12 AST 14 U/L (13-39) 05/26/17 14:12 ALT 25 U/L (7-52) 05/26/17 14:12 Alkaline Phosphatase 59 U/L (34-104) 05/26/17 14:12 Troponin I < 0.01 ng/mL (0.01-0.05) L 05/26/17 14:12 B-Natriuretic Peptide 63.1 pg/mL (5.0-100.0) 05/26/17 14:12 Total Protein 6.1 gm/dL (6.0-8.3) 05/26/17 14:12 Albumin 3.6 gm/dL (4.2-5.5) L 05/26/17 14:12 Globulin 2.5 gm/dL 05/26/17 14:12 Albumin/Globulin Ratio 1.4 (1.0-1.8) 05/26/17 14:12 Hepatitis A IgM Ab Negative (Negative) 05/27/17 04:54 Hep Bs Antigen Negative (Negative) 05/27/17 04:54 Hep B Core IgM Ab Negative (Negative) 05/27/17 04:54 Hepatitis C Antibody <0.1 s/co ratio (0.0-0.9) 05/27/17 04:54 - Physical Exam Vitals and I&O: Vital Signs Temp 97.2 F 10/15/17 11:57 Pulse 87 05/29/17 11:57 Resp 20 05/29/17 11:57 BP 150/70 05/29/17 11:57 Pulse Ox 94 05/29/17 11:57 Intake & Output 05/28/17 05/29/17 05/29/17 18:59 06:59 18:59 Intake Total 50 250 50 Output Total 0 Balance 50 250 50 Weight (lbs) 200 lb 198 lb Intake: Intake, IV Amount 50 50 50 cefTRIAXone 1 gm In 50 50 50 Sodium Chloride 0.9% 50 ml @ 100 mls/hr IV Q12HR [facility] Rx#:[id number] Oral 200 Output: Urine/Stool Mix 0 Other: # Voids 2 # Bowel Movements 0 Stool Characteristics Soft Formed Formed Active Medications: Current Medications Acetaminophen (Tylenol) 650 mg PO Q4H PRN PRN Reason: Pain Or Fever above 101 Stop: 07/25/17 18:51 Albuterol Sulfate (Albuterol 2.5mg/3ml Neb Ud) 2.5 mg HHN QIDRT [facility] Stop: 07/25/17 18:59 Last Admin: 05/29/17 10:58 Dose: 2.5 mg Docusate Sodium (Colace) 100 mg PO DAILY [facility] Stop: 07/26/17 08:59 Last Admin: 05/29/17 08:18 Dose: 100 mg Fish Oil ([place] 3) 1,000 mg PO BID [facility] Stop: 07/26/17 08:59 Last Admin: 05/29/17 08:18 Dose: 1,000 mg Heparin Sodium (Porcine) (Heparin) 5,000 units SUBQ Q12HR [facility] Stop: 07/26/17 20:59 Last Admin: 05/29/17 08:18 Dose: 5,000 units Ceftriaxone Sodium 1 gm/ (Sodium Chloride) 50 mls @ 100 mls/hr IV Q12HR [facility] Stop: 07/25/17 20:59 Last Infusion: 05/29/17 09:35 Dose: Infused Insulin Aspart (Novolog) 0 units SUBQ ACHS [facility] PRN Reason: Protocol Stop: 07/25/17 20:59 Last Admin: 05/29/17 12:03 Dose: Not Given Insulin Detemir (Levemir Insulin) 10 units SUBQ HS [facility] Stop: 07/25/17 20:59 Last Admin: 05/28/17 20:56 Dose: 10 units Lactobacillus Rhamnosus (Culturelle) 1 each PO DAILY [facility] Stop: 07/27/17 08:59 Last Admin: 05/29/17 08:18 Dose: 1 each Levothyroxine Sodium (Synthroid) 0.05 mg PO QDAC [facility] Stop: 07/26/17 07:29 Last Admin: 05/29/17 06:50 Dose: 0.05 mg Losartan Potassium (Cozaar) 50 mg PO DAILY [facility] Stop: 07/29/17 08:59 Miscellaneous (Vte Chemical Prophylaxis Screen/ Admission) 1 ea PRN PRN PRN Reason: PROTOCOL Stop: 07/26/17 10:57 Miscellaneous (Probiotic Screen) 1 ea PRN PRN PRN Reason: PROTOCOL Stop: 07/26/17 16:45 Ondansetron HCl (Zofran) 4 mg IV Q8H PRN PRN Reason: Nausea / Vomiting Stop: 07/25/17 18:51 Simvastatin (Zocor) 20 mg PO HS [facility] Stop: 07/25/17 20:59 Last Admin: 05/28/17 20:35 Dose: 20 mg Vitamin D (Vitamin D3) 2,000 iu PO BID [facility] Stop: 07/26/17 08:59 Last Admin: 05/29/17 08:18 Dose: 2,000 iu Zolpidem Tartrate (Ambien) 10 mg PO HS PRN PRN Reason: Insomnia Stop: 07/25/17 18:51 General: alert HEENT: NC/AT, PERRLA Neck: Supple Lungs: CTAB Cardiovascular: RRR, Normal S1, Normal S2, without murmur Abdomen: soft, non-tender, non-distended, positive bowel sound Extremities: edema Neurological: alert - Procedures Procedures: Procedures Procedure Code Date GROUP PSYCHOTHERAPY 02789 07/02/15 GROUP PSYCHOTHERAPY GZHZZZZ 07/02/15 OTHER GROUP THERAPY 94.44 01/29/15 RECREATIONAL THERAPY 93.81 06/09/14 Internal Medicine Assmt/Plan - Assessment Assessment: acute cellulitis dm-2 CHF exacerbation - Plan Plan: continue ivabx am labs elevate bilateral lower ext to reduce swelling continue current plan of care Nutritional Asmnt/Malnutr-PDOC - Dietary Evaluation Malnutrition Findings (Please click <Entered> for more info): Nutritional Asmnt/Malnutrition Start: 05/27/17 12: 01 Text: Status: Complete Freq: Document 05/27/17 12:01 MADDIE (Rec: 05/27/17 12:05 MADDIE [facility] -[email or web address]) Nutritional Asmnt/Malnutrition Patient General Information Nutritional Screening Consult Diagnosis Cellulits, CHF Pertinent Medical Hx/Surgical Hx DM, smoker per MD notes Subjective Information Pt seen for Nutrition Consult (elevated glucose level). Pt reported that he hasn't had much of an appetite as he doesn't care for hospital foods. RN confirmed that pt hasn't been eating much. Pt appeared over-nourished for ht , c/w anthropometrics and verified by pt. Pt has RLE and LLE 4+ pitting edema. Pt reported use of calcium and vitamins for immunity. Pt is lilkely not yet meeting optimal nutritional needs. RD to provide diabetic nutrition education. Current Diet Order/ Nutrition Support Cardiac Patient / S.O Can Pertinent Medications colace, omega 3, levemir, insulin, synthroid, zocor, VIT D3 Pertinent Labs 05/27/17: POC BG 110 H : BG 185 H, HgA1c 7.6 H , ALB 3.6 L Nutritional Hx/Data Height 5 ft 11 in Height (Calculated Centimeters) 180.3 Current Weight (lbs) 190 lb Weight (Calculated Kilograms) 86.2 Weight (Calculated Grams) 90723.6 Usual body Weight (lbs) 210 % Usual Body Weight 90 [place] Body Weight 172 lb, 78 kg % [place] Body Weight 110 Recent Weight Change Yes Weight Status Overweight GI Symptoms GI Symptoms None Food Allergies No Usual diet at home Avoids bread/prefers meats/ fish/chicken/beef Skin Integrity/Comment: Bilateral legs w/ rash/redness /cellulitis per RN report Current %PO Poor (25-49%) Estimated Nutritional Goals BEE in Kcals: Using Current wt Calories/Kcals/Kg 25-30 kcal/kg CBW (maintenance ) Kcals Calculated 8306-6937 kcal/day Protein: Using Current wt Protein g/k.8-1 gm/kg CBW (maintenance) Protein Calculated 69-86 gm/day Fluid: ml 2.2-2.6 L/day (1 ml/kcal/day for maintenance) Nutritional Problem 2. Problem Problem Altered nutriton-related labs Etiology related to endocrine dysfunction Signs/Symptoms: as evidenced by elevated BG and POC BG lab values. 1. Problem Problem Inadequate nutritional intakes Etiology related to lack of appetite Signs/Symptoms: as evidenced by pt and RN report. Malnutrition Alert Is there a minimum of two criteria No selected? Query Text:Check all the applicable criteria. A minimum of two criteria are recommended for diagnosis of either severe or non-severe malnutrition. Intervention/Recommendation Recommendations by RD Dietary Education by RD1 Increase Calorie Intake Comments * Recommend CCHO high carb-75 gm diet * Recommend encourage increase PO intakes Expected Outcomes/Goals Expected Outcomes/Goals - Monitor appetite and PO intakes w/ gaol fo pt meeting at least 75% of estimated nutritional needs, labs trending WNL, normal GI function, and skin integrity/ wt maintenance within 3-5 days
[2017-05-29] MEDS: Insulin Detemir 100 units/mL 10mL Vial SUBQ SCH (20:41)
[2017-05-30 06:17] LABS: % BASOPHILS 0.4 % (0.0-2.0); % EOSINOPHILS 2.2 % (0.0-5.0); % LYMPHOCYTES 31.5 % (20.0-50.0); % MONOCYTES 10.6 % (2.0-10.0); % NEUTROPHILS 55.3 % (40.0-80.0); HEMATOCRIT 37.9 % (41.0-60); HEMOGLOBIN 12.9 gm/dL (12-16); MEAN CELL VOLUME 89.5 fl (80-99); MEAN CORPUSCULAR HEMOGLOBIN 30.4 pg (26.0-30.0); MEAN PLATELET VOLUME 8.2 fl; NEUTROPHILE ABSOLUTE 4.5 Th/cmm (1.8-8.0); PLATELET COUNT 179 Th/cmm (150-400); RED BLOOD COUNT 4.23 Mil/cmm (4.30-5.70); RED CELL DISTRIBUTION WIDTH 13.1 % (11.5-20.0); WHITE BLOOD COUNT 8.2 Th/cmm (4.8-10.8)
[2017-05-30] MEDS: INSULIN ASPART, RECOMBINANT 100 UNITS/ML SUBQ SCH ×3 (06:29→17:11)
[2017-05-30] MEDS: Levothyroxine 0.05 Mg Tab PO SCH (06:30)
[2017-05-30 06:45] LABS: BUN - UREA NITROGEN 14 mg/dL (7-25); BUN/CREATININE RATIO 15.6; CALCIUM SERUM 8.8 mg/dL (8.6-10.3); CARBON DIOXIDE 27.1 mEq/L (21.0-31.0); CHLORIDE 103 mEq/L (98-107); CREATININE - SERUM 0.9 mg/dL (0.7-1.3); GLUCOSE 167 mg/dL (70-105); POTASSIUM SERUM 4.1 mEq/L (3.5-5.1); SODIUM SERUM 136 mEq/L (136-145)
[2017-05-30] MEDS: Albuterol Nebulizer 2.5mg/3mL HHN SCH ×2 (07:25→11:18)
[2017-05-30] MEDS: Vitamin D3 2,000 IU SGL PO SCH ×2 (08:31→16:12)
[2017-05-30] MEDS: Multivitamin w/ Minerals Tab PO SCH (08:31)
[2017-05-30] MEDS: Fish Oil 1,000 MG SGL PO SCH ×2 (08:32→16:12)
[2017-05-30] MEDS: Lactobacillus Rhamnosus 10 Billion CFU Capsule PO SCH (08:32)
[2017-05-30] MEDS: cefTRIAXone 1 GM in Sodium Chloride 0.9% 50 ML IV SCH (08:38)
== END 2017-05-30 18:05 | disposition home or self-care (01) | DRG 602 ==
LOC: ER 13:37 → TELE 16:40 → MSI 05-27 13:46
PROVIDERS: ADMIT Internal Medicine; ATTEND Internal Medicine
DX: L03.119 Cellulitis of unspecified part of limb (principal); I50.33 Acute on chronic diastolic (congestive) heart failure; E11.9 Type 2 diabetes mellitus without complications; F17.210 Nicotine dependence, cigarettes, uncomplicated; E03.9 Hypothyroidism, unspecified; F41.9 Anxiety disorder, unspecified; L73.9 Follicular disorder, unspecified; F32.9 Major depressive disorder, single episode, unspecified; F29 Unspecified psychosis not due to a substance or known physiological condition; I11.0 Hypertensive heart disease with heart failure; Z82.49 Family history of ischemic heart disease and other diseases of the circulatory system; Z83.3 Family history of diabetes mellitus
CPT/HCPCS: 36415-UA; 71010-TC; 76700-TC; 76856-TC; 80048-TC; 80053-TC; 80074-90; 82948-90; 83036-90; 83880-TC; 84484-TC; 85025-TC; 93005; 93970-TC-50; 94640; 94760; J0696; J1644; J1815; J7613; Z7610